=== PATIENT | female | born 1995 | race Caucasian/White ===

== ENCOUNTER 2024-11-02 12:57 | Outpatient (CLI) | payer BC, SELFPAY ==
--- NOTE | 2024-11-02 13:00 | US_ITS ---
PROCEDURE: US OB >= 14 WEEKS FETUS CLINICAL INDICATION: ANATOMY SCAN COMPARISON: No exams were available for comparison FINDINGS: Transabdominal sonographic images of the pelvis were obtained. From her established due date she is 22 weeks 4 days. Single viable intrauterine gestation. Breech position. Placenta: Anteriorplacenta grade 1. Transabdominally the placenta appears complete previa. Transvaginally the placenta is 1.82 cm from the internal os. There is an average amount of fluid. The cervix appears satisfactory. Closed and measuring 4.4 cm transvaginally in length. Complete survey performed and was unremarkable on the submitted images as in PACS. No discrete anomalies identified on survey imaging by technologist. Active fetus. Three-vessel cord with satisfactory umbilical cord insertion. 4- chamber heart noted. Situs, aortic arch, LVOT, RVOT, three-vessel view appear normal. Survey of brain & ventricles Unremarkable. Cerebellum, thalamus, choroid plexus, cisterna magna appear normal. Face and neck survey unremarkable. Profile, nasion, lips and nose appeared normal. Diaphragm and chest views unremarkable. Abdomen: Both kidneys noted and unremarkable. Stomach and bladder noted and satisfactory. Spine: Survey of the spine satisfactory with no anomalies identified nor imaged. Cervical, thoracic, lower spine appear normal. Both arms and legs noted. Amniotic Fluid: Adequate. MVP 6.27 cm Measurements: Average ultrasound age 23weeks 3days. Estimated due date by ultrasound age 0802/26/2025. Estimated weight 617g BPD = 23weeks HC = 22weeks 5days AC = 24weeks FL = 23weeks 6days Growth Percentile= 90 Heart Rate = 152bpm Cerebellum = 22weeks 3days Humerus = 23weeks 4days HC/AC is 1.07 FL/BPD is 0.76 FL/AC is 0.22 IMPRESSION: 1. Viable fetus in the breech presentation with an anterior low-lying placenta grade 1. Transabdominally the placenta appears to be complete previa but transvaginally it is 1.8 cm from the internal os. Suggest repeat scan at 28 weeks to see its complete resolution. 2. The fluid is within normal limits with an MVP 6.27 cm. 3. Anatomical scan appears normal. 4. biometry is consistent with the dates Dictated by: Malachi Balderas MD 11/02/2024 14:52 Malachi Balderas MD in [facility] 11/02/2024 14:52
== END 2024-11-02 23:59 | disposition home or self-care (01) ==
LOC: RAD 12:58
DX: Z34.83 Encounter for supervision of other normal pregnancy, third trimester (principal)
CPT/HCPCS: 76805